=== PATIENT | female | born 1975 | race Caucasian/White ===

== ENCOUNTER 2017-01-09 07:04 | Emergency (ER) | payer BC, MEDICARE, OTHER ==
[2017-01-09 07:29] VITALS: BP 132/82
[2017-01-09 08:35] LABS: BASOPHILS % 0.8 (0.0-1.5); EOSINOPHILS % 2.7 % (0.0-6.8); MEAN CORPUSCULAR HEMOGLOBIN 28.3 pg (28.0-34.0); MEAN CORPUSCULAR VOLUME 82.1 fl (80.0-100.0); MONOCYTES % 5.3 % (0.0-11.0); NEUTROPHILS # 7.7 # k/uL (1.4-7.7)
[2017-01-09 08:51] LABS: eGFR (African) > 60; eGFR (Non-African) > 60
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
== END 2017-01-09 09:04 | disposition left against medical advice (07) ==
LOC: ED 07:04
DX: S19.9XXA Unspecified injury of neck, initial encounter (principal); S59.901A Unspecified injury of right elbow, initial encounter; S09.90XA Unspecified injury of head, initial encounter; S29.9XXA Unspecified injury of thorax, initial encounter; V89.2XXA Person injured in unspecified motor-vehicle accident, traffic, initial encounter; Y93.9 Activity, unspecified; Y99.9 Unspecified external cause status; Z53.21 Procedure and treatment not carried out due to patient leaving prior to being seen by health care provider
CPT/HCPCS: 36415; 80053; 85025; G0480; 80320; 99283